=== PATIENT | male | born 1945 | race Caucasian/White ===

== ENCOUNTER 2017-11-11 12:47 | Emergency (ER) | payer MEDICARE, BC ==
--- NOTE | 2017-11-11 12:59 | EDM.PDOC ---
ED HPI GENERAL MEDICAL PROBLEM - General Chief Complaint: Laceration Stated Complaint: CUT TO TOP OF HEAD Time Seen by Provider: 11/11/17 12:57 Source of Information: Reports: Patient, RN, RN Notes Reviewed History Limitations: Reports: No Limitations - History of Present Illness INITIAL COMMENTS - FREE TEXT/NARRATIVE: Pt presents to ER by POV with c/o cutting the top of his head, and injuring his low back. Pt states he trip on some steps and fell into a pond, and hit his low back on some rocks. He was able to get himself up and drove himself to the ER. He denies LOC, N/V, or neck pain. His last tetanus vaccine was in 2007. Pt states he is diabetic and has Hx of chronic low back pain that he manages with tylenol. Onset: Today Duration: Constant Location: Reports: Head, Back Quality: Reports: Ache Severity: Severe (at low back) Improves with: Reports: None Worsens with: Reports: None Associated Symptoms: Reports: No Other Symptoms - Related Data Allergies Allergy/AdvReac Type Severity Reaction Status Date / Time No Known Allergies Allergy Verified 11/11/17 12:50 Home Meds: Home Meds Aspirin [Halfprin] 81 mg PO DAILY 12/28/14 [History] Clotrimazole/Betamethasone Dip [Lotrisone Cream] 1 applic TOP DAILY PRN [History] Gabapentin [Neurontin] 300 mg PO DAILY 12/28/14 [History] Insulin Glarg,Human.Rec.Analog [LantUS] 38 unit INJECT ACBREAKFAST 12/28/14 [ History] Insulin Lispro [Humalog] 1 unit INJECT ASDIRECTED PRN 12/28/14 [History] Losartan/Hydrochlorothiazide [Losartan-HCTZ 100-12.5 MG] 1 tab PO DAILY [History] Metoprolol Tartrate 50 mg PO BID 12/28/14 [History] Simvastatin 80 mg PO DAILY 12/28/14 [History] Tadalafil [Cialis] 10 mg PO DAILY 12/28/14 [History] Zolpidem [Ambien] 5 mg PO DAILY PRN 12/28/14 [History] Past Medical History Other HEENT History: RETINAL HEMORRHAGE OF LEFT EYE; RARELY WEARS HEARING AIDE BUT HAS ONE; WEARS CORRECTIVE LENSES Cardiovascular History: Reports: High Cholesterol, Hypertension Genitourinary History: Reports: Other (See Below) (ED) Musculoskeletal History: Reports: Back Pain, Chronic Other Musculoskeletal History: CLOSED FRACTURE OF LEFT DISTAL FIBULA Endocrine/Metabolic History: Reports: Diabetes, Type II, IDDM, Obesity/BMI 30+ - Past Surgical History Other HEENT Surgeries/Procedures: EXTRACTION OF CATARACT LEFT EYE Other Cardiovascular Surgeries/Procedures: ANGIOGRAM X2 Other Male Surgeries/Procedures: ERECTILE DYSFUNCTION Social & Family History - Family History Family Medical History: Noncontributory - Tobacco Use Smoking Status *Q: Former Smoker Tobacco Use Within Last Twelve Months: Cigarettes Used Tobacco, but Quit: Yes Month/Year Tobacco Last Used: 1975 - Living Situation & Occupation Occupation: Retired ED ROS GENERAL - Review of Systems Review Of Systems: ROS reveals no pertinent complaints other than HPI. ED EXAM, SKIN/RASH Exam: See Below Exam Limited By: No Limitations General Appearance: Alert, WD/WN, No Apparent Distress Eye Exam: Bilateral Eye: EOMI, Normal Inspection, PERRL Ears: Normal External Exam, Hearing Grossly Normal Nose: Normal Inspection, Normal Mucosa, No Blood Throat/Mouth: Normal Inspection, Normal Lips, Normal Teeth, Normal Voice, No Airway Compromise Head: Normocephalic, Other (superficial scalp abrasions) Neck: Normal Inspection, Non-Tender, Full Range of Motion Respiratory/Chest: No Respiratory Distress, Lungs Clear, Normal Breath Sounds, No Accessory Muscle Use, Chest Non-Tender Cardiovascular: Regular Rate, Rhythm GI/Abdominal: Normal Bowel Sounds, Soft, Non-Tender, No Distention, Other ( benign obese abdomen) (Male) Exam: Deferred Rectal (Males) Exam: Deferred Back Exam: CVA Tenderness (L), Decreased Range of Motion (lumbar region), Muscle Spasm (lumbar Left>Rt), Paraspinal Tenderness. No: CVA Tenderness (R), Vertebral Tenderness Extremities: Normal Inspection, Normal Range of Motion, Non-Tender, No Pedal Edema, Normal Capillary Refill Neurological: Alert, Oriented, CN II-XII Intact, Normal Cognition, Normal Gait, No Motor/Sensory Deficits Psychiatric: Normal Affect, Normal Mood Skin: Warm, Dry Course - Vital Signs Last Recorded V/S: Last Vital Signs Temp 37.0 C 11/11/17 13:50 Pulse 73 07/09/18 13:50 Resp 16 11/11/17 13:50 BP 191/72 H 11/11/17 13:50 Pulse Ox 97 11/11/17 13:50 - Orders/Labs/Meds Orders: Active Orders 24 hr Category Date Time Status Vaccines to be Administered [RC] PER UNIT ROUTINE Care 11/11/17 13:08 Active Lumbar Spine 2 or 3V [CR] Urgent Exams 11/11/17 13:09 Taken UA W/MICROSCOPIC [URIN] Stat Lab 11/11/17 13:09 Ordered Labs: Laboratory Tests 11/11/17 Range/Units 13:09 Urine Color Yellow (YELLOW) Urine Appearance Clear (CLEAR) Urine pH 5.5 (5.0-9.0) Ur Specific [place] 1.020 (1.005-1.030) Urine Protein 30 H (NEGATIVE) Urine Glucose (UA) 500 H (NEGATIVE) Urine Ketones 15 H (NEGATIVE) Urine Occult Blood Negative (NEGATIVE) Urine Nitrite Negative (NEGATIVE) Urine Bilirubin Negative (NEGATIVE) Urine Urobilinogen 0.2 (0.2-1.0) mg/dL Ur Leukocyte Esterase Negative (NEGATIVE) Urine RBC Not seen /HPF Urine WBC 0-5 (0-5/HPF) /HPF Ur Epithelial Cells Occasional /HPF Urine Bacteria Occasional (0-FEW/HPF) /HPF Urine Mucus Occasional /LPF Meds: Medications Discontinued Medications Generic Name Dose Route Start Last Admin Trade Name Freq PRN Reason Stop Dose Admin Acetaminophen 650 mg 11/11/17 13:34 11/11/17 13:45 Tylenol PO 11/11/17 13:35 650 mg NOW ONE Administration Bacitracin 1 dose 11/11/17 13:08 11/11/17 13:46 Bacitracin Oint 1 Gm TOP 11/11/17 13:09 1 dose ONETIME ONE Administration Diphtheria/Tetanus/Acell Pertussis 0.5 ml 11/11/17 13:08 11/11/17 13:46 Adacel IM 11/11/17 13:09 0.5 ml .ONCE ONE Administration - Radiology Interpretation Free Text/Narrative:: X-ray L-spine: no acute fractures or compressions, chronic degen. changes; see Rad. report. Departure - Departure Time of Disposition: 13:59 Disposition: Home, Self-Care 01 Condition: Good Clinical Impression: Acute exacerbation of chronic low back pain Scalp abrasion Qualifiers: Encounter type: initial encounter Qualified Code(s): S00.01XA - Abrasion of scalp, initial encounter Acute myofascial strain of lumbar region Qualifiers: Encounter type: initial encounter Qualified Code(s): S39.012A - Strain of muscle, fascia and tendon of lower back, initial encounter Fall on steps Qualifiers: Encounter type: initial encounter Qualified Code(s): W10.8XXA - Fall (on) (from ) other stairs and steps, initial encounter - Discharge Information Instructions: Abrasion, Back Pain, Adult, Tailbone Injury, [id number] Forms: ED Department Discharge Additional Instructions: Rx: [place] 5mg/325mg *Do not drive while under the influence of this medication. Rx: Bactroban Ointment 2% Your tetanus (T-DAP) vaccine was up dated today, and will be good for 10 years. Follow up in clinic if not improving as expected in 5 to 7 days. Return to ER if worse at any time. - My Orders Last 24 Hours: My Active Orders 11/11/17 13:08 Vaccines to be Administered [RC] PER UNIT ROUTINE 11/11/17 13:09 Lumbar Spine 2 or 3V [CR] Urgent UA W/MICROSCOPIC [URIN] Stat - Assessment/Plan Last 24 Hours: My Active Orders 11/11/17 13:08 Vaccines to be Administered [RC] PER UNIT ROUTINE 11/11/17 13:09 Lumbar Spine 2 or 3V [CR] Urgent UA W/MICROSCOPIC [URIN] Stat
[2017-11-11] MEDS ORDERED: Bacitracin Oint 1 GM U/D Packet TOP ONE (13:08)
[2017-11-11] MEDS ORDERED: Diphtheria,Pertussis(Acell),Tetanus Vaccine 0.5 ML SDV IM ONE (13:08)
[2017-11-11] MEDS ORDERED: Acetaminophen 325 MG Tab PO ONE (13:34)
[2017-11-11 13:51] VITALS: BP 191/72
--- NOTE | 2017-11-11 14:04 | CR ---
Clinical history: 72-year-old male low back injury (fall). Interpretation: Dense calcifications normal caliber abdominal aorta. 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 No sign of pathologic skeletal lesion, lumbar fracture, spondylolisthesis or abnormal intervertebral disc space narrowing. Symmetric spacing normal-appearing SI and hip joints. CONCLUSION: No lumbar fracture or dislocation.
== END 2017-11-11 14:09 | disposition home or self-care (01) ==
LOC: DL.ED 12:47
DX: S39.012A Strain of muscle, fascia and tendon of lower back, initial encounter (principal); S00.01XA Abrasion of scalp, initial encounter; I10 Essential (primary) hypertension; Z79.82 Long term (current) use of aspirin; Z79.899 Other long term (current) drug therapy; Z79.4 Long term (current) use of insulin; Z23 Encounter for immunization; Z87.891 Personal history of nicotine dependence; W10.8XXA Fall (on) (from) other stairs and steps, initial encounter
CPT/HCPCS: 72100; 81001; 90471; 90715; 99283; A9270

== ENCOUNTER 2020-04-26 06:29 | Day surgery (SDC) | payer MEDICARE, BC ==
[~2020-04-26 06:29] MED LIST: Midazolam 1 MG/ML 2 ML SDV ONE; Sodium Chloride 0.9% 10 ML Syringe FLUSH PRN; fentaNYL 100 MCG/2 ML SDV ONE
[2020-04-26] MEDS ORDERED: fentaNYL 100 MCG/2 ML SDV IV ONE (06:30)
[2020-04-26] MEDS ORDERED: Midazolam 1 MG/ML 2 ML SDV IV ONE (06:30)
[2020-04-26] MEDS: Dextrose 5%-0.45% NaCl 1,000 ML IV SCH (07:06)
[2020-04-26] MEDS: fentaNYL 100 MCG/2 ML SDV IV ONE ×2 (07:35→07:36)
[2020-04-26] MEDS: Midazolam 1 MG/ML 2 ML SDV IV ONE ×3 (07:36→07:54)
--- NOTE | 2020-04-26 09:36 | OR ---
DATE: 04/26/2020 PROCEDURE: Total colonoscopy and multiple cold snare polypectomies. INSTRUMENT USED: PCF-H190DL Olympus video colonoscope. PREMEDICATIONS: Fentanyl 100 mcg intravenous, Versed 3 mg intravenous. Nasal O2 cannula. The procedure was done under pulse oximetry, BP recording, and monitoring coordinator. INDICATION: The patient with Hemoccult-positive stools. Colonoscopic examination is done for detection of any polypoid lesions and removal, endoscopic hemostasis therapy if needed. DESCRIPTION OF PROCEDURE: Initial rectal exam was unremarkable. Rigid anoscopy showed small internal hemorrhoids without bleeding from them. The colonoscope was passed with ease. Numerous scattered diverticula were noted in the distal left colon along with deformity. In the distal descending colon, 5 mm sized benign-appearing polyp was noted, photographs were taken, cold snare polypectomy was done, the tissue was retrieved and sent for histopathology. The scope was passed with ease up to the ileocecal area. Photographs were taken of the normal- appearing cecum identified by appendiceal orifice and double-bulged ileocecal folds. No bleeding was noted from any of the visualized areas at the commencement of the examination. The bowel preparation was inadequate due to the presence of large amount of fecal material, especially in the left colon. [place] score 2 in right and transverse colon, 1 in left colon. No stricture. No vascular ectasia. No large isolated ulcerations seen. No evidence of diffuse inflammatory bowel disease in the form of friability, contact bleeding, or ulcerations. Probing the proximal sides of folds and flexures using adequate distention and clearing of the stool material, withdrawal of the scope was made. Diminutive benign-appearing polyps were noted in the mid ascending colon and mid transverse colon, cold snare polypectomies were done, the tissues were retrieved and sent for histopathology. No bleeding was noted from any of the visualized areas at the completion of examination. IMPRESSION: 1. Internal hemorrhoids. 2. Diverticulosis. 3. Multiple colonic polyps. The patient tolerated the procedure well. [facility] /[id number]
[2020-04-26 10:16] VITALS: BP 179/68; PULSE 53
== END 2020-04-26 10:20 | disposition home or self-care (01) ==
LOC: DL.ENDO 06:29
PROVIDERS: ATTEND Internal Medicine Gastroenterology
DX: D12.4 Benign neoplasm of descending colon (principal); D12.2 Benign neoplasm of ascending colon; D12.3 Benign neoplasm of transverse colon; E66.09 Other obesity due to excess calories; I10 Essential (primary) hypertension; E78.5 Hyperlipidemia, unspecified; E11.42 Type 2 diabetes mellitus with diabetic polyneuropathy; Z79.4 Long term (current) use of insulin; Z79.899 Other long term (current) drug therapy; Z68.36 Body mass index [BMI] 36.0-36.9, adult
CPT/HCPCS: 45385; J2250; J3010; J7042

== ENCOUNTER 2022-05-09 02:50 | Emergency (ER) | payer MEDICARE, OTHER ==
[2022-05-09 03:30] LABS: ANION GAP 11.4 mEq/L (7-13); CHLORIDE,CL 100 mmol/L (98-107); SODIUM,NA 138 mmol/L (136-145)
[2022-05-09 03:36] LABS: ESTIMATED GFR 65 mL/min (>=60)
[2022-05-09 03:41] VITALS: BP 166/60; PULSE 61
[2022-05-09 04:01] LABS: CORONAVIRUS COVID-19 NAA NEGATIVE (NEGATIVE); RESPIRATORY SYNCYTIAL VIR NAA NEGATIVE (NEGATIVE)
[2022-05-09] MEDS ORDERED: Furosemide 20 MG/2 ML VIAL IVPUSH ONE (05:05)
== END 2022-05-09 07:14 | disposition home or self-care (01) ==
LOC: DL.ED 02:50
DX: E11.649 Type 2 diabetes mellitus with hypoglycemia without coma (principal); I10 Essential (primary) hypertension; E78.00 Pure hypercholesterolemia, unspecified; E11.40 Type 2 diabetes mellitus with diabetic neuropathy, unspecified; E66.9 Obesity, unspecified; Z68.36 Body mass index [BMI] 36.0-36.9, adult; Z79.82 Long term (current) use of aspirin; Z79.4 Long term (current) use of insulin; Z79.899 Other long term (current) drug therapy; Z20.822 Contact with and (suspected) exposure to COVID-19
CPT/HCPCS: 0241U; 36415; 71045; 80053; 81001; 82150; 82947; 83605; 83690; 83735; 85025; 86140; 87040; 96374; 99284; 99285; J1940

== ENCOUNTER 2023-03-08 14:54 | Emergency (ER) | payer MEDICARE, OTHER ==
[2023-03-08] MEDS ORDERED: Sodium Chloride 0.9% 10 ML Syringe FLUSH PRN (15:06)
[2023-03-08] MEDS ORDERED: Aspirin 81 MG Tab.Chew PO ONE (15:08)
[2023-03-08 15:21] VITALS: PULSE 87
[2023-03-08 15:22] LABS: BASOPHILS PERCENT AUTO 0.3 % (0.0-1.0); EOSINOPHILS PERCENT AUTO 1.3 % (1.0-3.0); HEMATOCRIT 41.6 % (40.0-54.0); HEMOGLOBIN 14.7 g/dL (14.0-18.0); LYMPHOCYTES PERCENT AUTO 17.2 % (20.5-50.1); MEAN CORPUSCULAR HEMOGLOBIN 33.8 pg (27.0-34.0); MEAN CORPUSCULAR HGB CONC 35.3 g/dL (33.0-35.0); MEAN CORPUSCULAR VOLUME 95.6 fL (80-100); MONOCYTES PERCENT AUTO 7.5 % (2-8); NEUTROPHILS PERCENT AUTO 73.7 % (42.2-75.2); PLATELET COUNT,PLT 237 10^3/uL (150-450); RED BLOOD CELL COUNT 4.35 10^6/uL (4.6-6.2); WHITE BLOOD CELL COUNT,WBC 11.7 10^3/uL (5.0-10.0)
[2023-03-08 15:32] LABS: ALBUMIN 3.3 g/dL (3.4-5.0); ANION GAP 12.3 mEq/L (7-13); BUN/CREATININE RATIO 14.5 (No establ ref range); CALCIUM 8.6 mg/dL (8.5-10.1); CREATININE 1.24 mg/dL (0.70-1.30); EST CRCL DRUG DOSING (CG) 53.02 mL/min; POTASSIUM,K 4.3 mmol/L (3.5-5.1); PROTEIN TOTAL,TP 7.1 g/dL (6.4-8.2)
[2023-03-08 15:33] LABS: A/G RATIO 0.87
[2023-03-08] MEDS: Nitroglycerin 0.4 MG Tab.SL SL PRN ×2 (15:36→15:42)
[2023-03-08 15:42] VITALS: BP 158/95
[2023-03-08] MEDS ORDERED: Nitroglycerin 2% Oint 1 GM UD Packet ONE (16:42)
== END 2023-03-08 16:55 ==
LOC: DL.ED 14:54
DX: I24.9 Acute ischemic heart disease, unspecified (principal); E11.9 Type 2 diabetes mellitus without complications; E66.9 Obesity, unspecified; E78.00 Pure hypercholesterolemia, unspecified; I10 Essential (primary) hypertension; Z79.4 Long term (current) use of insulin; Z79.82 Long term (current) use of aspirin; Z79.899 Other long term (current) drug therapy; Z68.41 Body mass index [BMI] 40.0-44.9, adult
CPT/HCPCS: 36415; 71045; 80053; 83690; 83880; 84484; 85025; 85379; 93005; 93010; 99285; A9270-GY; J3490

== ENCOUNTER 2023-10-28 12:24 | Inpatient (IN) | payer MEDICARE, OTHER ==
[2023-10-28] MEDS ORDERED: 50% Dextrose in Water 50 ML Syringe IVPUSH PRN ×2 (12:48→14:09)
[2023-10-28] MEDS ORDERED: Glucagon,Human Recombinant 1 MG Vial IM PRN ×2 (12:48→14:09)
[2023-10-28] MEDS: Ondansetron 4 MG/2 ML SDV IVPUSH ONE (12:53)
[2023-10-28] MEDS: Sodium Chloride 0.9% 1,000 ML IV ONE ×2 (12:53→14:48)
[2023-10-28] MEDS: Sodium Chloride 0.9% 10 ML Syringe FLUSH PRN (12:53)
[2023-10-28 12:59] LABS: HEMATOCRIT 41.4 % (40.0-54.0); MEAN CORPUSCULAR HEMOGLOBIN 31.5 pg (27.0-34.0); MEAN CORPUSCULAR HGB CONC 33.8 g/dL (33.0-35.0); PLATELET COUNT,PLT 382 10^3/uL (150-450); RED BLOOD CELL COUNT 4.45 10^6/uL (4.6-6.2); WHITE BLOOD CELL COUNT,WBC 18.6 10^3/uL (5.0-10.0)
[2023-10-28 13:16] LABS: A/G RATIO 0.9; ALANINE AMINOTRANSFERASE,ALT 21 U/L (16-63); ALBUMIN 3.6 g/dL (3.4-5.0); ALKALINE PHOSPHATASE 94 U/L (46-116); ANION GAP 32.7 mEq/L (7-13); ASPARTATE AMNIOTRANSFERASE,AST 15 U/L (15-37); BILIRUBIN TOTAL 0.8 mg/dL (0.2-1.0); BLOOD UREA NITROGEN,BUN 53 mg/dL (7-18); BUN/CREATININE RATIO 17.7 (No establ ref range); CALCIUM 8.8 mg/dL (8.5-10.1); CARBON DIOXIDE,CO2 15 mmol/L (21-32); CHLORIDE,CL 92 mmol/L (98-107); CREATININE 2.99 mg/dL (0.70-1.30); MAGNESIUM 2.2 mg/dL (1.8-2.4); POTASSIUM,K 5.7 mmol/L (3.5-5.1); PROTEIN TOTAL,TP 7.5 g/dL (6.4-8.2); SODIUM,NA 134 mmol/L (136-145)
[2023-10-28] MEDS: Insulin Regular, Human 100 Units/ML 3 ML Vial IV ONE (13:21)
[2023-10-28 13:23] LABS: GLUCOSE RANDOM 725 mg/dL (70-99); LACTIC ACID 2.9 mmol/L (0.4-2.0)
[2023-10-28 13:23] LABS: O2 DELIVERY DEVICE ROOM AIR
[2023-10-28 13:24] LABS: ESTIMATED GFR 21 mL/min (>=60)
[2023-10-28 13:36] LABS: BASOPHILS PERCENT AUTO 0.4 % (0.0-1.0); EOSINOPHILS PERCENT AUTO 0.1 % (1.0-3.0); LYMPHOCYTES PERCENT AUTO 12.4 % (20.5-50.1); MONOCYTES PERCENT AUTO 7.1 % (2-8)
[2023-10-28 13:43] LABS: KETONES,BLOOD MODERATE-40 mg/dL
[2023-10-28 13:46] LABS: O2 SATURATION VENOUS 59.2 % (60-80); PCO2 VENOUS 38 mmHg (41-51); PO2 VENOUS 39 mmHg (35-42)
[2023-10-28 13:47] LABS: BASE EXCESS VENOUS -11.5 mmol/l ((-2)-(+3)); BICARBONATE,VENOUS 15 mmol/l (19-25)
[2023-10-28 13:49] LABS: PH,VENOUS 7.22 (7.31-7.41)
[2023-10-28 14:00] LABS: BAND PERCENT MAN 1 %; LYMPHOCYTES PERCENT MAN 13 % (20-50); MONOCYTES PERCENT MAN 2 % (2-8); SEG NEUTROPHILS PERCENT MAN 84 % (42-75)
[2023-10-28] MEDS: Carvedilol 6.25 MG Tab PO SCH (18:39)
[2023-10-28] MEDS: Gabapentin 300 MG Cap PO SCH (20:58)
[2023-10-28] MEDS: Tamsulosin 0.4 MG Cap.ER PO SCH (20:59)
[2023-10-28] MEDS: Triamcinolone Acetonide 0.1% Crm 15 GM Tube TOP SCH (20:59)
[2023-10-28] MEDS: atorvaSTATin 20 MG Tab PO SCH (20:59)
[2023-10-28] MEDS: Dextrose 5%-0.9% NaCl 1,000 ML IV SCH (21:38)
[2023-10-29 01:06] LABS: ANION GAP 12.1 mEq/L (7-13); CALCIUM 8.6 mg/dL (8.5-10.1); CREATININE 2.36 mg/dL (0.70-1.30); EST CRCL DRUG DOSING (CG) 27.86 mL/min; POTASSIUM,K 4.1 mmol/L (3.5-5.1)
[2023-10-29] MEDS ORDERED: Glucagon,Human Recombinant 1 MG Vial IM PRN (01:15)
[2023-10-29] MEDS ORDERED: 50% Dextrose in Water 50 ML Syringe IVPUSH PRN (01:15)
[2023-10-29] MEDS ORDERED: Sodium Chloride 0.9% 1,000 ML IV SCH (01:30)
[2023-10-29] MEDS: Sodium Chloride 0.9% 1,000 ML IV SCH (01:33)
[2023-10-29] MEDS: Insulin Glarg,Human.Rec.Analog 100 Unit/ML 10 ML Vial SUBCUT SCH (01:58)
[2023-10-29 06:40] LABS: ANION GAP 10.3 mEq/L (7-13); CALCIUM 8.3 mg/dL (8.5-10.1); CREATININE 2.28 mg/dL (0.70-1.30); EST CRCL DRUG DOSING (CG) 28.84 mL/min; POTASSIUM,K 4.3 mmol/L (3.5-5.1)
[2023-10-29 09:38] LABS: ANION GAP 13.2 mEq/L (7-13); CALCIUM 8.1 mg/dL (8.5-10.1); CREATININE 2.2 mg/dL (0.70-1.30); EST CRCL DRUG DOSING (CG) 29.88 mL/min; POTASSIUM,K 4.2 mmol/L (3.5-5.1)
[2023-10-29] MEDS: Insulin Lispro 100 Units/ML 3 ML Vial SUBCUT SCH ×2 (11:39→12:25)
[2023-10-29 13:39] LABS: ANION GAP 10.9 mEq/L (7-13); CALCIUM 8.3 mg/dL (8.5-10.1); CREATININE 2.14 mg/dL (0.70-1.30); EST CRCL DRUG DOSING (CG) 30.72 mL/min; POTASSIUM,K 3.9 mmol/L (3.5-5.1)
[2023-10-29 18:32] LABS: ANION GAP 8.2 mEq/L (7-13); CALCIUM 8.3 mg/dL (8.5-10.1); CREATININE 1.82 mg/dL (0.70-1.30); EST CRCL DRUG DOSING (CG) 36.12 mL/min; POTASSIUM,K 4.2 mmol/L (3.5-5.1)
[2023-10-29 21:25] LABS: CALCIUM 8.2 mg/dL (8.5-10.1); CREATININE 1.68 mg/dL (0.70-1.30); EST CRCL DRUG DOSING (CG) 39.13 mL/min
[2023-10-29] MEDS: Finasteride 5 MG Tab PO SCH (21:44)
[2023-10-30] MEDS: Zolpidem 5 MG Tab PO PRN (00:08)
[2023-10-30 01:53] LABS: ANION GAP 7.7 mEq/L (7-13); CALCIUM 8.1 mg/dL (8.5-10.1); CREATININE 1.39 mg/dL (0.70-1.30); EST CRCL DRUG DOSING (CG) 47.3 mL/min; POTASSIUM,K 3.7 mmol/L (3.5-5.1)
[2023-10-30 06:41] LABS: ANION GAP 5.7 mEq/L (7-13); CREATININE 1.28 mg/dL (0.70-1.30); EST CRCL DRUG DOSING (CG) 51.36 mL/min; POTASSIUM,K 3.7 mmol/L (3.5-5.1)
[2023-10-30 09:35] LABS: CALCIUM 8.1 mg/dL (8.5-10.1); CREATININE 1.27 mg/dL (0.70-1.30); EST CRCL DRUG DOSING (CG) 51.77 mL/min
[2023-10-30 11:57] VITALS: BP 152/57; PULSE 66
== END 2023-10-30 12:35 | disposition home or self-care (01) | DRG 638 ==
LOC: DL.ED 12:24 → DL.MS 14:26 → DL.ED 14:56
PROVIDERS: ADMIT Internal Medicine; ATTEND Internal Medicine
DX: E11.10 Type 2 diabetes mellitus with ketoacidosis without coma (principal); N17.9 Acute kidney failure, unspecified; I25.10 Atherosclerotic heart disease of native coronary artery without angina pectoris; E11.40 Type 2 diabetes mellitus with diabetic neuropathy, unspecified; H91.90 Unspecified hearing loss, unspecified ear; E11.9 Type 2 diabetes mellitus without complications; H54.7 Unspecified visual loss; E78.00 Pure hypercholesterolemia, unspecified; I10 Essential (primary) hypertension; G47.30 Sleep apnea, unspecified; K21.9 Gastro-esophageal reflux disease without esophagitis; M54.9 Dorsalgia, unspecified; G89.29 Other chronic pain; E66.9 Obesity, unspecified; E86.0 Dehydration; E87.5 Hyperkalemia; Z95.1 Presence of aortocoronary bypass graft; Z79.82 Long term (current) use of aspirin; Z79.4 Long term (current) use of insulin; Z79.899 Other long term (current) drug therapy; Z87.81 Personal history of (healed) traumatic fracture; Z68.34 Body mass index [BMI] 34.0-34.9, adult; Z98.49 Cataract extraction status, unspecified eye
CPT/HCPCS: 36415; 71046; 80048; 80053; 82009; 82803; 82947; 83605; 83735; 85025; 86140; 93005; 93010; 96361; 96374; 99223; 99233; 99239; 99285; 99285-25; A9270-GY; J1815-GY; J2405; J3490; J7030; J7042